=== PATIENT | male | born 1985 ===

== ENCOUNTER 2023-05-29 11:45 | Outpatient (CLI) | payer OTHER, SELFPAY ==
[2023-05-29 12:39] LABS: FREE T4 0.99 ng/dL (0.76-1.46); TSH 1.79 uIU/mL (0.36-3.74)
[2023-05-29 16:05] LABS: Ferritin 148 ng/mL (26-388)
[2023-05-29 16:20] LABS: Vitamin D 25 Total 38.8 ng/mL (30-100)
[2023-05-29 17:31] LABS: Sex Hormone Binding Globulin 26.4 nmol/L (11.5-54.5); Thyroglobulin Antibody <15 U/mL (<=60); Thyroperoxidase Antibody <28 U/mL (<=60)
[2023-05-29 19:38] LABS: T3,Free 4.2 pg/mL (2.8-5.3)
[2023-05-31 12:40] LABS: EBV EA IgG Negative (Negative)
[2023-06-01 10:34] LABS: DHEA Sulfate 309 ug/dL (140-484)
[2023-06-01 16:33] LABS: ANA Interpretation Negative (Negative)
[2023-06-03 16:11] LABS: Testosterone, Total 490 ng/dL (240-950)
== END 2023-05-29 11:46 | disposition home or self-care (01) ==
LOC: LBO 11:46
PROVIDERS: Visit Provider Naturopath
DX: R53.83 Other fatigue (principal); L63.9 Alopecia areata, unspecified; E55.9 Vitamin D deficiency, unspecified
CPT/HCPCS: 36415; 82306; 82627; 84402; 84403; 86663; 82728; 84270; 84439; 84443; 84481; 86038; 86376; 86800

== ENCOUNTER 2023-10-26 12:50 | Outpatient (CLI) | payer OTHER, SELFPAY ==
[2023-10-26 14:07] LABS: Calculated LDL 139 mg/dL (<100); Cholesterol 221 mg/dL (<200); HDL Cholesterol 48 mg/dL (40-60); Triglyceride 171 mg/dL (<150)
[2023-10-28 10:39] LABS: Apolipoprotein B, S 120 mg/dL
[2023-10-28 17:03] LABS: Apolipoprotein A1 131 mg/dL (>=120)
== END 2023-10-26 12:51 | disposition home or self-care (01) ==
LOC: LBO 12:50
PROVIDERS: Visit Provider Naturopath
DX: E78.5 Hyperlipidemia, unspecified (principal)
CPT/HCPCS: 36415; 80061; 82172

== ENCOUNTER 2023-10-29 11:39 | Outpatient (CLI) | payer OTHER, SELFPAY ==
[2023-11-05 13:37] LABS: Testosterone, Total 566 ng/dL (240-950)
== END 2023-10-29 11:40 | disposition home or self-care (01) ==
LOC: LBO 11:47
PROVIDERS: Visit Provider Naturopath
DX: R68.82 Decreased libido (principal)
CPT/HCPCS: 36415; 84402; 84403

== ENCOUNTER 2024-05-04 15:45 | Outpatient (CLI) | payer OTHER, SELFPAY ==
[2024-05-04 16:02] LABS: Vitamin B12 624 pg/mL (193-986)
[2024-05-04 16:03] LABS: Folate > 20.0 ng/mL (8.6-20.0)
[2024-05-06 10:13] LABS: IgA 61 mg/dL (85-499); Interpretation (See Note); Tissue Transglutaminase IgA <4.0 CU (<20.0)
[2024-05-10 16:24] LABS: Pyridoxal 5-Phosphate (PLP), P 36 mcg/L (5-50)
== END 2024-05-04 15:46 | disposition home or self-care (01) ==
LOC: LBO 15:47
PROVIDERS: Visit Provider Naturopath
DX: E72.12 Methylenetetrahydrofolate reductase deficiency (principal); K52.9 Noninfective gastroenteritis and colitis, unspecified
CPT/HCPCS: 36415; 82784; 83090; 83516; 82607; 82746; 84207

== ENCOUNTER 2024-05-05 09:09 | Outpatient (CLI) | payer OTHER, SELFPAY ==
[2024-05-06 10:01] LABS: Homocysteine 8.7 umol/L (5.0-13.9)
== END 2024-05-05 09:10 | disposition home or self-care (01) ==
LOC: LBO 09:09
PROVIDERS: Visit Provider Naturopath
DX: E72.12 Methylenetetrahydrofolate reductase deficiency (principal); K52.9 Noninfective gastroenteritis and colitis, unspecified
CPT/HCPCS: 36415; 83090

== ENCOUNTER 2024-09-02 11:32 | Outpatient (CLI) | payer OTHER, SELFPAY ==
[2024-09-02 12:38] LABS: Calculated LDL 144 mg/dL (<100); Cholesterol 205 mg/dL (<200); HDL Cholesterol 51 mg/dL (>or=40); Triglyceride 51 mg/dL (<150); Vitamin D 25 Total 57 ng/mL (30-100)
[2024-09-02 18:41] LABS: Homocysteine 8.2 umol/L (5.0-13.9)
[2024-09-05 10:31] LABS: DHEA Sulfate 359 ug/dL (140-484)
[2024-09-06 13:19] LABS: Apolipoprotein A1, S 131 mg/dL (>=120); Apolipoprotein B, S 115 mg/dL (See Comment); Apolipoprotein B/A 1 ratio 0.9 (See Comment)
[2024-09-17 09:53] LABS: Testosterone, Total 546 ng/dL (240-950)
== END 2024-09-02 11:33 | disposition home or self-care (01) ==
LOC: LBO 11:32
PROVIDERS: Visit Provider Naturopath
DX: R53.82 Chronic fatigue, unspecified (principal); E55.9 Vitamin D deficiency, unspecified; Z15.89 Genetic susceptibility to other disease; E78.5 Hyperlipidemia, unspecified
CPT/HCPCS: 36415; 80061; 82172; 82306; 82627; 83090; 84402; 84403

== ENCOUNTER 2024-10-17 14:21 | Outpatient (CLI) | payer OTHER, SELFPAY ==
[2024-10-17 12:06] LABS: HCT 43.2 % (40.0-50.0); HGB 14.5 g/dL (13.5-17.5); MCH 29.4 pg (27.0-33.0); MCHC 33.6 % (32.0-36.0); MCV 87 fL (80-95); MPV 10.5 fL (8.0-11.0); Platelet Count 219 10^3/uL (130-400); RBC 4.94 10^6/uL (4.36-5.78); RDW 13.3 % (11.8-14.1); RDW-SD 42.8 fL; WBC 6.25 10^3/uL (4.4-10.8)
== END 2024-10-17 14:22 | disposition home or self-care (01) ==
LOC: LBO 14:22
PROVIDERS: Visit Provider Naturopath
DX: R68.82 Decreased libido (principal)
CPT/HCPCS: 36415; 85027; 82670; 84154

== ENCOUNTER 2025-04-12 09:04 | Outpatient (CLI) | payer OTHER, SELFPAY ==
[2025-04-12 09:24] LABS: Abs Immature Grans 0.01 10^3/uL (0.0-0.06); HCT 43.1 % (40.0-50.0); HGB 14.4 g/dL (13.5-17.5); Immature Grans % 0.2 %; MCH 29.4 pg (27.0-33.0); MCHC 33.4 % (32.0-36.0); MCV 88 fL (80-95); MPV 9.9 fL (8.0-11.0); Platelet Count 221 10^3/uL (130-400); RBC 4.90 10^6/uL (4.36-5.78); RDW 12.5 % (11.8-14.1); RDW-SD 40.3 fL; WBC 5.68 10^3/uL (4.4-10.8)
[2025-04-12 10:15] LABS: Iron 129 ug/dL (65-175)
[2025-04-12 10:16] LABS: Total Iron Binding Capacity 278 ug/dL (250-425); Transferrin Sat 46 % (20-55)
[2025-04-12 10:25] LABS: Folate > 24.0 ng/mL (>5.38)
[2025-04-12 10:31] LABS: ALT 18 U/L (10-49); AST 18 U/L (<34); Albumin 4.4 g/dL (3.2-5.0); Alkaline Phosphatase 68 U/L (46-116); Anion Gap 5.7 mmol/L (3-11); BUN 27 mg/dL (9-23); Bilirubin, Total 1.2 mg/dL (0.2-1.2); CO2 28.3 mmol/L (20.0-31.0); Calcium 8.6 mg/dL (8.3-10.6); Chloride 109 mmol/L (98-107); Cholesterol 198 mg/dL (<200); Ferritin 112 ng/mL (11-307); Glucose 91 mg/dL (74-106); HDL Cholesterol 46 mg/dL (>or=40); Potassium 4.4 mmol/L (3.5-5.1); Sodium 143 mmol/L (136-145); TSH 1.47 uIU/mL (0.55-4.78); Total Protein 6.7 g/dL (5.7-8.2); Vitamin B12 918 pg/mL (211-911); Vitamin D 25 Total 87 ng/mL (30-100)
[2025-04-15 14:02] LABS: Apolipoprotein A1, S 128 mg/dL (>=120); Apolipoprotein B, S 106 mg/dL (See Comment); Apolipoprotein B/A 1 ratio 0.8 (See Comment)
[2025-04-17 23:29] LABS: Testosterone, Free 85.5 pg/mL (35.0-155.0)
== END 2025-04-12 09:05 | disposition home or self-care (01) ==
LOC: LBO 09:04
PROVIDERS: Visit Provider Naturopath
DX: F33.8 Other recurrent depressive disorders (principal); E78.49 Other hyperlipidemia
CPT/HCPCS: 36415; 80053; 80061; 82172; 82306; 82627; 84402; 84403; 82607; 82728; 82746; 83540; 83550; 84439; 84443; 85025